=== PATIENT | female | born 1965 | race Caucasian/White ===

== ENCOUNTER 2017-09-19 01:04 | Emergency (ER) | payer OTHER ==
[2017-09-19 01:37] LABS: Band 12 % (5-11); Eosinophils 1 % (0-10); Hemoglobin 9.2 g/dL (12.0-16.0); Lymphocytes 30 % (21-51); MDiff Complete? YES; Mean Corpuscular HGB CONC 29.4 g/dL (32.0-36.0); Mean Corpuscular Hemoglobin 25.4 pg (27.0-31.0); Mean Corpuscular Volume 86.4 fL (78.0-98.0); Mean Platelet Volume 6.9 fL (7.4-10.4); Metamyelocyte 5 % (0-0); Monocytes 8 % (0-10); Neutrophil 44 % (42-75); Nucleated RBC 1 % (0); PLT Morphology Comment Appears Adequate; Platelet Count 253 thou/uL (130-400); RBC Distribution Width 18.3 % (11.5-14.5); Red Blood Cell (RBC) Count 3.61 mill/uL (4.20-5.40); White Blood Cell (WBC) Count 18.9 thou/uL (4.8-10.8)
[2017-09-19 01:43] LABS: Troponin I 0.044 ng/mL (< 0.028)
[2017-09-19 01:45] LABS: Actual Bicarbonate (HCO3a) 36.8 mEq/L (22-28); Base Excess (BEa) 9.2 mEq/L (-2.0 to +3.0); O2 Tension (PaO2) 87.6 mmHg (80.0-100.0); pH, Arterial 7.28 (7.35-7.45)
[2017-09-19 01:46] LABS: Analyzer IN Cardio ER; Calcium, Ionized 1.6 mmol/L (1.12-1.30); Hemoglobin (Hb) 5.8 g/dL (12.0-16.0); Puncture Site LFA
[2017-09-19 01:47] LABS: ALT (SGPT) 96 U/L (8-55); AST (SGOT) 122 U/L (5-34); Albumin 3.2 g/dL (3.5-5.0); Alkaline Phosphatase 69 U/L (40-150); Anion Gap 32 mmol/L (10-20); BUN (Urea Nitrogen) 20 mg/dL (7.0-18.7); Bilirubin, Total Less than 0.2 mg/dL (0.2-1.2); Calc. Creatinine Clearance 0 mL/min (70-130); Carbon Dioxide 10 mmol/L (22-29); Chloride 106 mmol/L (98-107); Estimated GFR-MDRD 40; Globulin 2.7 g/dL (2.4-3.5); Glucose 416 mg/dL (70-105); Protein, Total 5.9 g/dL (6.0-8.3); Sodium 143 mmol/L (136-145)
[2017-09-19 01:47] LABS: Peep/CPAP 7.5 cmH2O
[2017-09-19 01:55] LABS: Base Excess-Venous -19.3 mmol/L (0 (+/- 2.5)); Bicarbonate (HCO3v) 11.8 mmol/L (1.0-85.0); CO2 Tension (PvCO2) 58.8 mmHg (41.0-51.0); Calcium, Ionized 1.29 mmol/L (1.12-1.32); Hemoglobin - Calc 6.5 g/dL (12.0-18.0); Lactate 14.08 mmol/L (0.50-2.20); O2 Tension (PvO2) 45.3 mmHg (35.0-45.0); Potassium 4.9 mmol/L (3.4-4.7); T. Carbon Dioxide 13.6 mmol/L (1.0-85.0); pH (Venous) 6.912 (7.35-7.45); vO2 Saturation-calc 51.6 % (94-98)
[2017-09-19 01:56] LABS: INR-International Normal Ratio 2.1
[2017-09-19 01:57] LABS: PTT 72.9 SEC (22.9-36.1)
[2017-09-19] MEDS ORDERED: Sodium Chloride 0.9% 1,000 ML BAG ONE (02:00)
[2017-09-19] MEDS ORDERED: Atropine Sulfate 1 mg/10 ml Syringe ONE (02:00)
[2017-09-19] MEDS ORDERED: EPINEPHrine 2 MG, Admixture Fee 1 EACH in Dextrose 5% in Water 250 ML IV SCH (02:00)
[2017-09-19] MEDS ORDERED: Sodium Bicarb 50 MEQ/50 ML Abboject 8.4% SYRINGE ONE (02:00)
[2017-09-19] MEDS ORDERED: EPINEPHrine 1 MG/10 ML Abboject SYRINGE ONE (02:00)
[2017-09-19] MEDS ORDERED: Calcium Chloride 1 GM/10 ML Abboject SYRINGE ONE (02:00)
[2017-09-19] MEDS ORDERED: Heparin 0 ML ONE (02:07)
[2017-09-19 02:11] LABS: CK (CPK) 70 U/L (29-168)
[2017-09-19] MEDS ORDERED: Norepinephrine 8 MG/0.9% NS 250 ML ONE (02:11)
--- NOTE | 2017-09-19 08:55 | RAD ---
PORTABLE CHEST 1 VIEW: Date: 09/19/17 Time: 0106 hours HISTORY: Respiratory failure. FINDINGS/IMPRESSION: There is an endotracheal tube with tip at the level of the clavicular heads. Nasogastric tube can be traced into the stomach. Heart size is normal. There are bilateral perihilar opacities. No definite p neumothorax or large effusions are seen. There are right lower rib fractures. POS: [facility]
== END 2017-09-19 12:30 | disposition expired ==
LOC: EDBD 01:04 → ERS 01:04
DX: I46.9 Cardiac arrest, cause unspecified (principal); I21.3 ST elevation (STEMI) myocardial infarction of unspecified site; K51.90 Ulcerative colitis, unspecified, without complications; Z79.891 Long term (current) use of opiate analgesic; Z79.899 Other long term (current) drug therapy
CPT/HCPCS: 36556; 71045; 80053; 82330; 82550; 82553; 82803; 82805; 83605; 84484; 85025; 85610; 85730; 93005; 96365; 96368; 96374; 96375; 96376; 99292; J0171; J0461; J1644; J2997; J7050; J7070